=== PATIENT | male | born 1955 | race Caucasian/White ===

== ENCOUNTER → 2017-08-17 | Outpatient (REF) ==
[~2017-08-17] MED LIST: MOBIC15 MG PO; NORCO 325 MG-7.1 TAB PO; PRINIVIL40 MG PO; ZOCOR 20MG20 MG PO
== END ==
LOC: ZLAB.WCH 08:39
DX: Z12.5 Encounter for screening for malignant neoplasm of prostate (principal)
CPT/HCPCS: G0103

== ENCOUNTER → 2017-10-08 | Outpatient (CLI) | payer BC | LOC: COL.RAD 12:20 | DX: Z01.818 Encounter for other preprocedural examination (principal); M17.12 Unilateral primary osteoarthritis, left knee ==

== ENCOUNTER → 2017-10-25 | Outpatient (REF) | LOC: ZLAB.WCH 18:45 | DX: Z01.89 Encounter for other specified special examinations (principal) ==

== ENCOUNTER 2018-07-08 10:42 | Outpatient (CLI) | payer BC | END 2018-07-08 14:00 | disposition home or self-care (01) | LOC: EUO 10:42 | DX: Z45.2 Encounter for adjustment and management of vascular access device (principal) | CPT/HCPCS: C1751 ==

== ENCOUNTER → 2018-07-09 | Outpatient (REF) | LOC: ZLAB.WCH 12:14 | DX: Z01.89 Encounter for other specified special examinations (principal) ==

== ENCOUNTER → 2018-07-11 | Outpatient (REF) | LOC: ZLAB.WCH 16:36 | DX: Z01.89 Encounter for other specified special examinations (principal) ==

== ENCOUNTER → 2018-07-11 | Outpatient (REF) | LOC: ZLAB.WCH 16:28 | DX: Z01.89 Encounter for other specified special examinations (principal) ==

== ENCOUNTER → 2018-07-15 | Outpatient (REF) | LOC: ZLAB.WCH 09:41 | DX: Z01.89 Encounter for other specified special examinations (principal) ==

== ENCOUNTER → 2018-07-21 | Outpatient (REF) | LOC: ZLAB.WCH 08:56 | DX: Z01.89 Encounter for other specified special examinations (principal) ==

== ENCOUNTER → 2018-07-27 | Outpatient (REF) | LOC: ZLAB.WCH 08:32 | DX: Z01.89 Encounter for other specified special examinations (principal) ==

== ENCOUNTER → 2018-08-03 | Outpatient (REF) | LOC: ZLAB.WCH 08:50 | DX: Z01.89 Encounter for other specified special examinations (principal) ==

== ENCOUNTER → 2018-08-05 | Outpatient (REF) | LOC: ZLAB.WCH 08:29 | DX: Z01.89 Encounter for other specified special examinations (principal) ==

== ENCOUNTER → 2018-08-07 | Outpatient (REF) | LOC: ZLAB.WCH 10:07 | DX: Z01.89 Encounter for other specified special examinations (principal) ==

== ENCOUNTER → 2018-08-12 | Outpatient (REF) | LOC: ZLAB.WCH 09:04 | DX: Z01.89 Encounter for other specified special examinations (principal) ==

== ENCOUNTER 2018-08-24 11:01 | Outpatient (CLI) | payer BC ==
[~2018-08-24] VITALS: Ht 180.3 cm; Wt 122.4 kg
[2018-08-24] MEDS ORDERED: ASPIRIN 81M81 MG/TA2 PO (11:35)
[2018-08-24] MEDS ORDERED: NATURAL IRON65 MG PO (11:35)
[2018-08-24] MEDS ORDERED: FOLIC ACID0.4 MG PO (11:36)
[2018-08-24] MEDS ORDERED: OMEGA-3 1000 MG1 CAP PO (11:36)
[2018-08-24] MEDS ORDERED: VITAMIN C500 MG PO (11:36)
[2018-08-24 11:40] VITALS: BP 143/67; PULSE 67; TEMP 98.1
== END 2018-08-24 11:57 | disposition home or self-care (01) ==
LOC: EUO 11:01
DX: Z45.2 Encounter for adjustment and management of vascular access device (principal); Z96.651 Presence of right artificial knee joint; Z98.890 Other specified postprocedural states

== ENCOUNTER 2018-11-18 10:28 | Inpatient (IN) | payer BC ==
[~2018-11-18] VITALS: Ht 175.3 cm; Wt 120.1 kg
[~2018-11-18 10:28] MED LIST changes: +ASPIRIN 81M81 MG/TA2 PO; +FOLIC ACID0.4 MG PO; +NATURAL IRON65 MG PO; +OMEGA-3 1000 MG1 CAP PO; +VITAMIN C500 MG PO
[2018-12-13] VITALS (9 sets, daily range): BP systolic 121–158; BP diastolic 41–72; PULSE 42–75; TEMP 97.9–98.8
[2018-12-13 10:27] LABS: INR 1.1 (0.8-3.0); PROTHROMBIN TIME 12.6 SECONDS (9.7-12.8)
[2018-12-13 10:31] LABS: BASO % 0.5 % (0.0-2.0); EOS # 0.2 (0.0-0.7); EOS % 2.9 % (0-4.0); GRAN # 4.8 (1.4-6.5); GRAN % 72.8 % (42.2-75.2); HEMATOCRIT 38.5 % (42.0-52.0); HEMOGLOBIN 12.7 g/dl (13.5-18.0); LYMPH # 0.8 (1.2-3.4); LYMPH % 12.4 % (20.0-51.0); MEAN CELL VOLUME 85 fl (80.0-100.0); MEAN CORPUSCULAR HEMOGLOBIN 28 pg (27.0-31.0); MEAN CORPUSCULAR HGB CONC 33 g/dl (33.0-37.0); MEAN PLATELET VOLUME 9.2 fl (7.4-10.4); MONO # 0.7 (0.1-0.6); MONO % 10.9 % (1.7-9.3); PLATELET COUNT 225 K/mm3 (130-400); RED BLOOD COUNT 4.51 M/mm3 (4.20-5.60); REDCELL DISTRIBUTION WIDTH-CV 14.6 % (11.5-14.5)
--- NOTE | 2018-12-13 15:35 | NUR ---
PATIENT BACK IN ROOM 330 POST OP. ORIENTED BUT DROWSY. VSS. DENIES PAIN. PATIENT IS ABLE TO MOVE BLE SLIGHTLY. RTK DRESSING IS CD&I WITH ACEWRAP INPLACE. IROM BRACE TO RLE. TEDS TO LLE. SCD'S TO BLE. POSITIVE PEDAL PULSES TO BLE. FRAGA TO DEPENDENT DRAINAGE WITH SMALL AMOUNTS OF CLEAR YELLOW URINE NOTED. IV FLUIDS INFUSING VIA PUMP. NO C/O N/V. LIQUIDS AT BEDSIDE. HEAD TO TOE ASSESSMENT COMPLETE. ORIENTED TO ROOM. NO FAMILY AT BEDSIDE. CALL LIGHT IN REACH.
--- NOTE | 2018-12-13 16:15 | NUR ---
CALLED AND LEFT MESSAGE FOR ID CONSULT.
--- NOTE | 2018-12-13 20:00 | NUR ---
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 ASSESSMENT COMPLETE SEE FLOW SHEET. VS STABLE. IROM BRACE, JOHANNY BANDAGE WITH BULKY DRESSING-CLEAN DRY AND INTACT. DENIES NEED FOR PAIN MEDICATIONS. TEACHING DONE ON REQUESTING PAIN MEDICATIONS WHEN NEEDED. UP TO BATHROOM AND AMBULATED IN THE [place] 100 FEET WITHOUT DIFFICULTY. ICE APPLIED. CALL LIGHT WITHIN REACH. BED IN LOW POSITION. WILL CONTINUE TO MONITOR.
[2018-12-14 00:47] VITALS: BP 153/57; PULSE 90; TEMP 98.8
[2018-12-14 05:07] VITALS: BP 130/62; PULSE 77; TEMP 97.9
--- NOTE | 2018-12-14 05:42 | NUR ---
HAS RESTED WELL THROUGH THE NIGHT. VS STABLE. IROM BRACE ON AND ELEVATED ON SLIGHTLY ON PILLOW. DRESSING DRY AND INTACT. C/O PAIN RATED 5/10 IN RIGHT LOWER EXTREMITY. MEDICATED PER DR PENA 2 TABS. WILL MONITOR EFFECTIVENESS. CRYOCUFF FILLED WITH ICE/WATER AND ON. DENIES ANY OTHER QUESTIONS OR CONCERNS. CALL LIGHT WITHIN REACH. BED IN LOW POSITION-WHEELS LOCKED. WILL MONITOR.
[2018-12-14] MEDS ORDERED: ASPI325T6 PO (06:47)
[2018-12-14] MEDS ORDERED: NORCO 325 MG-7.1 TAB PO (06:47)
[2018-12-14] MEDS ORDERED: CELEBREX 200MG200 MG PO (06:47)
[2018-12-14] MEDS ORDERED: ULTRAM 50MG TAB50 MG PO (06:48)
--- NOTE | 2018-12-14 07:05 | NUR ---
Report from Lana NEGRO.
[2018-12-14 07:19] LABS: HEMATOCRIT 28.8 % (42.0-52.0)
[2018-12-14 07:20] LABS: HEMOGLOBIN 9.5 g/dl (13.5-18.0)
[2018-12-14 09:18] VITALS: BP 106/67; PULSE 71; TEMP 97.6
--- NOTE | 2018-12-14 09:20 | NUR ---
PT RESTING IN BED. DR FERNANDEZ ROUNDED AND CHANGED DRESSING. IV SERVICES PLACED PICC LINE. ANCEF COMPLETE ORDERED.
[2018-12-14 11:00] VITALS: BP 110/43; PULSE 81; TEMP 98.3
--- NOTE | 2018-12-14 11:34 | NUR ---
PT RESTING IN RECLINER SM AMT OF PROXIMAL DRAINAGE NOTED. FRAGA CATHETER DISCONTINUED PER ORDRS BY PLODDING OPERATOR STUDENTS.
--- NOTE | 2018-12-14 12:24 | NUR ---
reinforced dressing to right knee pt had some oozing through swati wrap. Pt tolerated well. asisted to standing with brace
--- NOTE | 2018-12-14 12:27 | NUR ---
Initial visit; Patient thanked Scraper Operator for looking in on him and ofering God's blessings.
[2018-12-14 16:22] VITALS: BP 126/45; PULSE 80; TEMP 99
--- NOTE | 2018-12-14 16:42 | NUR ---
ERICA tamayo met with patient to discuss discharge plan. The patient lives with his (Jyoti) in [place]. The patient's PCP is Dr. Miguelangel Peters and he receives his medications from [facility]. The patient did not have a DPOA-HC completed but was interested in completing one while here. ERICA tamayo presented and explained the DPOA-HC form. Patient designated his (Jyoti) and daughter (Esme). ERICA tamayo and SW (Ann) witnessed signature. ERICA Tamayo placed copy in his chart and provided patient with original +3 copies. No identified needs at this time. SW to continue to follow.
[2018-12-14 17:57] LABS: ALBUMIN 2.7 gm/dL (3.5-5.0); BILIRUBIN,TOTAL 0.2 mg/dL (0.0-1.0); CALCIUM 8.1 mg/dL (8.4-10.2); CREATININE, serum 1.07 mg/dL (0.66-1.25); TOTAL PROTEIN 5.6 gm/dL (6.4-8.2)
--- NOTE | 2018-12-14 18:44 | NUR ---
REPORT TO MORALES NEGRO.
[2018-12-14 20:00] VITALS: BP 125/52; PULSE 77; TEMP 98.6
--- NOTE | 2018-12-14 22:00 | NUR ---
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 HAS SLEPT WELL EARLY THIS SHIFT. ASSESSMENT COMPLETE. VS STABLE. AMBULATED A LAP AROUND ALL OF SURGICAL AND JOINT FLOOR WITHOUT DIFFICULTY USING CRUTCHES. IROM BRACE ON. DRESSING- OJHANNY BANDAGE AND BULKY WHITE DRESSINGS FROM REINFORCEMENT DUE TO DRAINAGE. NO NEW DRAINAGE NOTED. DENIES ANY QUESTIONS OR CONCERNS AT THIS TIME. CALL LIGHT WITHIN REACH. BED IN LOW POSITION AND LOCKED. INSTRUCTED TO CALL FOR QUESTIONS OR CONCERNS. VERBALIZES UNDERSTANDING. WILL MONITOR.
[2018-12-15 04:35] VITALS: BP 103/43; PULSE 80; TEMP 97.6
--- NOTE | 2018-12-15 04:54 | NUR ---
HAS RESTED WELL OFF AND ON THROUGH THE NIGHT. DENIES NEED FOR PAIN MEDICATIONS. NO CHANGE IN DRAINAGE FOR THIS SHIFT. JOHANNY BANDAGES WITH BULKY DRESSING UNDERNEATH. BRACE IN PLACE WITH FRESH ICE PACK APPLIED. VS HAVE BEEN STABLE. DENIES ANY QUESTIONS OR CONCERNS AT THIS TIME. ENCOURAGED TO CALL FOR NEEDS AND CALL LIGHT WITHIN REACH. BED IN LOW POSITION, WHEELS LOCKED. WILL CONTINUE TO MONITOR.
[2018-12-15 06:42] LABS: HEMATOCRIT 26.5 % (42.0-52.0); HEMOGLOBIN 8.5 g/dl (13.5-18.0)
[2018-12-15 08:12] VITALS: BP 128/62; PULSE 66; TEMP 97.4
[2018-12-15 12:08] VITALS: BP 112/40; PULSE 63; TEMP 98.5
[2018-12-15 17:15] VITALS: BP 132/39; PULSE 76; TEMP 98.5
[2018-12-15 20:45] VITALS: BP 121/51; PULSE 77; TEMP 98.6
--- NOTE | 2018-12-15 21:00 | NUR ---
PT RT KNEE BRACE REMAINS ON AND AT 0 WITH KNEE EXTENEDED STRAIGHT. PT TOLERATING WELL.
--- NOTE | 2018-12-15 23:00 | NUR ---
PT STATED THAT HE HAS BEEN ABULATING TO BATHROOM AD KRISTEN
[2018-12-15 23:20] VITALS: BP 129/45; PULSE 72; TEMP 98.3
[2018-12-16 04:24] VITALS: BP 108/48; PULSE 72; TEMP 97.9
--- NOTE | 2018-12-16 06:11 | NUR ---
PT HAD UNEVENTFUL NOC. HAD PAIN PILL AT BEDTIME FOR KNEE PAIN AND TO HELP RELAX HIM. NO OTHER CNSERNS OR COMPLAINTS THIS NOC. STATED HE SLEPT WELL FROM 1900 TO MIDNIGHT THEN WAS AWAKE FREQUENTLY AFTER THAT. DRESSING REMAINS CLEAN DRY AND INTACT.
--- NOTE | 2018-12-16 06:50 | NUR ---
appears to be sleeping, bedside shift report received from SRUTHI Pitts
--- NOTE | 2018-12-16 07:01 | NUR ---
PT ASLEEP AT THIS TIME. NOTED AUDIBLE SNORING. LEEANN TAKING OVER ON CARES.
--- NOTE | 2018-12-16 07:30 | NUR ---
Pt resting in bed with leg elevated brace on right leg with swati wrap that remains clean,dry and intact. PICC line in place in right upper arm with red and purple caps. No complaints of shortness of breath. Pt states "I want to stay on top of pain and requesting pain medicine at this time." Talked with primary RN Fabienne she agrees with this.
[2018-12-16 08:00] VITALS: BP 147/57; PULSE 72; TEMP 97.7
--- NOTE | 2018-12-16 08:00 | NUR ---
awake now and student nurse in to assist with care of patient
--- NOTE | 2018-12-16 09:00 | NUR ---
resting in bed after having had breakfast, full assessment completed, have reviewed assessment completed by student and in agreement with that assessment
--- NOTE | 2018-12-16 11:22 | NUR ---
ERICA faxed antibiotic prescription to [facility] and spoke with nurse. Time scheduled for 4pm tomorrow start. Patient agreeable. Patient will dc home today with outpatient antibiotics.
--- NOTE | 2018-12-16 12:00 | NUR ---
discharge instructions given to patient and his , verbalizes understandinag
--- NOTE | 2018-12-16 12:15 | NUR ---
discharged per WC
== END 2018-12-16 12:15 | disposition home or self-care (01) | DRG 468 ==
LOC: JCC 12-13 09:51
PROVIDERS: Internal Medicine Infectious Disease; Physician Assistant; ADMIT Orthopaedic Surgery
PROC: 0SRC0EZ Replacement of Right Knee Joint with Articulating Spacer, Open Approach (ICD-10-PCS; 2018-12-13)
PROC: 0SPC0JZ Removal of Synthetic Substitute from Right Knee Joint, Open Approach (ICD-10-PCS; principal; 2018-12-13 14:15)
DX: T84.53XA Infection and inflammatory reaction due to internal right knee prosthesis, initial encounter (principal); I10 Essential (primary) hypertension; Z96.651 Presence of right artificial knee joint; B95.61 Methicillin susceptible Staphylococcus aureus infection as the cause of diseases classified elsewhere; E78.5 Hyperlipidemia, unspecified
CPT/HCPCS: A4314; A9284; C1713; C1751; C1776; J0690; J0878; J1885; J2250; J2704; J3010; J3370; J7030; J7120; J7121

== ENCOUNTER → 2018-12-06 | Outpatient (CLI) | payer BC | LOC: COL.LAB 12:11 | DX: Z96.651 Presence of right artificial knee joint (principal) ==

== ENCOUNTER → 2018-12-26 | Outpatient (REF) ==
[~2018-12-26] MED LIST changes: +ASPI325T6 PO; +CELEBREX 200MG200 MG PO; +ULTRAM 50MG TAB50 MG PO
== END ==
LOC: ZLAB.WCH 19:37
DX: Z01.89 Encounter for other specified special examinations (principal)

== ENCOUNTER → 2019-01-10 | Outpatient (REF) | LOC: ZLAB.WCH 10:08 | DX: Z01.89 Encounter for other specified special examinations (principal) ==

== ENCOUNTER → 2019-01-17 | Outpatient (REF) | LOC: ZLAB.WCH 09:57 | DX: Z01.89 Encounter for other specified special examinations (principal) ==

== ENCOUNTER → 2019-01-24 | Outpatient (REF) | LOC: ZLAB.WCH 09:24 | DX: Z01.89 Encounter for other specified special examinations (principal) ==

== ENCOUNTER → 2019-03-02 | Outpatient (CLI) | payer BC ==
[2019-03-02 09:08] LABS: BASO # 0.1 (0.0-0.2); BASO % 0.7 % (0.0-2.0); EOS # 0.3 (0.0-0.7); EOS % 3.8 % (0-4.0); GRAN % 67.2 % (42.2-75.2); HEMATOCRIT 38.6 % (42.0-52.0); HEMOGLOBIN 12.4 g/dl (13.5-18.0); LYMPH # 1.4 (1.2-3.4); LYMPH % 18.2 % (20.0-51.0); MEAN CELL VOLUME 84 fl (80.0-100.0); MEAN CORPUSCULAR HEMOGLOBIN 27 pg (27.0-31.0); MEAN CORPUSCULAR HGB CONC 32 g/dl (33.0-37.0); MONO # 0.7 (0.1-0.6); MONO % 9.8 % (1.7-9.3); PLATELET COUNT 328 K/mm3 (130-400)
[2019-03-02 09:25] LABS: ALANINE AMINOTRANSFERASE < 6 U/L (21-72); ALKALINE PHOSPHATASE 131 U/L (50-136); ANION GAP 12 mmol/L (7-16); AST,SGOT 20 U/L (15-37); BILIRUBIN,TOTAL 0.3 mg/dL (0.0-1.0); BLOOD UREA NITROGEN 22 mg/dL (9-20); C-REACTIVE PROTEIN 2.8 mg/dL (0.0-0.9); CALCIUM 9.3 mg/dL (8.4-10.2); CARBON DIOXIDE 26 mmol/L (22-30); CHLORIDE 104 mmol/L (98-107); CREATINE KINASE 63 U/L (55-170); CREATININE, serum 0.89 (0.66-1.25); GLUCOSE 142 mg/dL (74-106); POTASSIUM 4.6 mmol/L (3.4-5.0); SODIUM 141 mmol/L (137-145); TOTAL PROTEIN 8.2 gm/dL (6.4-8.2)
[2019-03-02 09:28] LABS: ERYTHROCYTE SEDIMENTATION RATE 40 mm/hr (0-30)
== END ==
LOC: COL.LAB 08:27
PROVIDERS: Internal Medicine Infectious Disease
DX: M00.9 Pyogenic arthritis, unspecified (principal); A49.01 Methicillin susceptible Staphylococcus aureus infection, unspecified site; R10.9 Unspecified abdominal pain

== ENCOUNTER → 2019-03-09 | Outpatient (CLI) | payer BC ==
[2019-03-09 12:59] LABS: BASO # 0.1 (0.0-0.2); BASO % 0.6 % (0.0-2.0); EOS # 0.3 (0.0-0.7); EOS % 3.5 % (0-4.0); GRAN # 6.4 (1.4-6.5); GRAN % 73.4 % (42.2-75.2); HEMATOCRIT 37.6 % (42.0-52.0); HEMOGLOBIN 12.1 g/dl (13.5-18.0); LYMPH # 1.1 (1.2-3.4); LYMPH % 13.2 % (20.0-51.0); MEAN CELL VOLUME 83 fl (80.0-100.0); MEAN CORPUSCULAR HEMOGLOBIN 27 pg (27.0-31.0); MEAN CORPUSCULAR HGB CONC 32 g/dl (33.0-37.0); MEAN PLATELET VOLUME 9.2 fl (7.4-10.4); MONO # 0.8 (0.1-0.6); MONO % 9.1 % (1.7-9.3); PLATELET COUNT 300 K/mm3 (130-400); RED BLOOD COUNT 4.53 M/mm3 (4.20-5.60)
[2019-03-09 13:13] LABS: ALBUMIN 4.1 gm/dL (3.5-5.0); BILIRUBIN,TOTAL 0.4 mg/dL (0.0-1.0); C-REACTIVE PROTEIN 5.6 mg/dL (0.0-0.9); CALCIUM 9.3 mg/dL (8.4-10.2); CREATININE, serum 0.94 (0.66-1.25); POTASSIUM 4.3 mmol/L (3.4-5.0); TOTAL PROTEIN 8.4 gm/dL (6.4-8.2)
[2019-03-09 13:25] LABS: ERYTHROCYTE SEDIMENTATION RATE 41 mm/hr (0-30)
== END ==
LOC: COL.LAB 09:11
PROVIDERS: Internal Medicine Infectious Disease
DX: M00.9 Pyogenic arthritis, unspecified (principal); A49.01 Methicillin susceptible Staphylococcus aureus infection, unspecified site

== ENCOUNTER 2019-03-10 09:20 | Inpatient (IN) | payer BC ==
[~2019-03-10] VITALS: Ht 175.3 cm; Wt 115.0 kg
[2019-03-29] VITALS (11 sets, daily range): BP systolic 92–136; BP diastolic 35–72; PULSE 55–74; TEMP 98–98.9
[2019-03-29] MEDS ORDERED: ASPIRIN E.C. 8181 MG PO (08:19)
--- NOTE | 2019-03-29 08:48 | NUR ---
arrived on unit at 075, prepped for surgery without incident, explanation given to patient and his for going to and returning from surgery, verbalizes understanding, denies needs
--- NOTE | 2019-03-29 14:30 | NUR ---
O2 sats on room air while sleeping, drop to 89%, cardiopulmonary notified and will place on O2, has sensation with some tingling to feet and is able to move toes, constavac remains with only approx 100ml bloody drainage in reservoir
--- NOTE | 2019-03-29 15:00 | NUR ---
awake and sitting up in bed eating snack crackers, instructed him he could call and order something to eat but will wait at this time, full assessment compelted, see interventions for further info, has approx 200ml blood in reservoir, denies needs
--- NOTE | 2019-03-29 15:30 | NUR ---
awake now and looking at TV, provided dexter tobar per his request, instructed on ordering regular food when he is ready and verbalizes understanding
--- NOTE | 2019-03-29 16:26 | NUR ---
SW met with the patient to discuss a discharge plan. The pt lives in [place] with his , Jyoti. The pt has a walker available but does not need it and reports independence with ADLs. The pt's PCP is Dr. Peters and pt receives his medications from [facility] with no difficulties. The pt has advanced directives in the EMR and they designate his Jyoti and daughter Esme. The pt plans to return home upon discharge. There are no additional needs at this time.
--- NOTE | 2019-03-29 16:30 | NUR ---
constac continuew with only approx 200ml bloody drainage in reservoir
--- NOTE | 2019-03-29 17:30 | NUR ---
visiting with family, is reviewing menu and will order supper soon
--- NOTE | 2019-03-29 18:59 | NUR ---
bedside shift report given to SRUTHI Cordova
--- NOTE | 2019-03-29 19:19 | NUR ---
Report received from SRUTHI Loving.
[2019-03-30 01:04] VITALS: BP 127/48; PULSE 73; TEMP 98.7
--- NOTE | 2019-03-30 03:32 | NUR ---
Patient has rested well so far tonight. Requested pain medication x1 this shift. Ambulated to the door to his bedroom and back. Tolerated this well. Patient has a constavac to right knee. Drain noted to have over 400ml in it about 2200. Bhavana Hughes updated and told this nurse the drain was placed around 1300 so the blood in the constavac could not be used d/t it needing to be used within 4 hours. The blood that was in the constavac was disposed of and a new time started at 0030. 150ml noted to be in the vac at this time. Will continue to monitor drain and patient.
[2019-03-30 04:36] VITALS: BP 130/58; PULSE 83; TEMP 98.6
[2019-03-30 07:25] LABS: HEMATOCRIT 27.2 % (42.0-52.0); HEMOGLOBIN 8.7 g/dl (13.5-18.0)
[2019-03-30 08:00] VITALS: BP 122/59; PULSE 71; TEMP 97.7
--- NOTE | 2019-03-30 08:00 | NUR ---
PATIENT IS A&O. VSS. DENIES PAIN IN RLE BUT REQUESTS SOMETHING FOR PAIN BEFORE AM THERAPY. GAVE PRN NORCO. RTK DRESSING IS CD&I WITH ACEWRAP AND CONSTOVAC DRAIN TO DD. NOTED APPROX 275CC OF BLOODY DRAINAGE. FRAGA TO DEPENDENT DRAINAGE WITH MOD AMOUNTS OF CLEAR YELLOW URINE NOTED. IV TO INT. HEAD TO TOE ASSESSMENT WNL. NO C/O N/V. BREAKFAST TRAY AT BEDSIDE. AM MEDS GIVEN.
[2019-03-30 12:06] VITALS: BP 103/32; PULSE 79; TEMP 98.8
--- NOTE | 2019-03-30 15:20 | NUR ---
DC'D FRAGA PER ORDERS. FRAGA CATH TIP INTACT AND PATIENT TOLERATED WELL. NOTED 425CC OF CLEAR YELLOW URINE. NOTED 350CC OF BLOODY DRAINAGE IN CONSTOVAC DRAIN. PATIENT REPORTS LITTLE PAIN IN RLE. PATIENT AMBULATED TO BATHROOM AND BACK TO BED. ELEVATED RLE WITH PILLOW. NO OTHER NEEDS. CALL LIGHT IN REACH.
[2019-03-30 16:00] VITALS: BP 120/54; PULSE 79; TEMP 98.6
[2019-03-30 19:22] VITALS: BP 110/49; PULSE 80; TEMP 98.8
[2019-03-31 00:25] VITALS: BP 123/56; PULSE 70; TEMP 97.8
--- NOTE | 2019-03-31 02:39 | NUR ---
Patient has rested well throughout the night. Drain clamped to right knee. Patient ambulates to restroom with no difficulty. Will continue to monitor.
[2019-03-31 04:32] VITALS: BP 134/62; PULSE 69; TEMP 97.6
--- NOTE | 2019-03-31 06:35 | NUR ---
bedside shift report received from SRUTHI Cordova
[2019-03-31 06:43] LABS: HEMATOCRIT 28.4 % (42.0-52.0); HEMOGLOBIN 8.8 g/dl (13.5-18.0)
--- NOTE | 2019-03-31 07:30 | NUR ---
appears to be sleeping, resp quiet and easy
--- NOTE | 2019-03-31 07:54 | NUR ---
awake now and watching TV, full assessment completed, see interventions for further info, denies needs
[2019-03-31 08:38] VITALS: BP 133/54; PULSE 75; TEMP 97.7
--- NOTE | 2019-03-31 10:30 | NUR ---
discharge instructions given to patient, verbalizes understanding, will call when brother is here for discharge
--- NOTE | 2019-03-31 11:00 | NUR ---
discharged per WC
== END 2019-03-31 11:00 | disposition home or self-care (01) | DRG 468 ==
LOC: JCC 03-29 07:43 → SURG 03-29 10:00 → JCC 03-29 11:30
PROVIDERS: Physician Assistant; ADMIT Orthopaedic Surgery
PROC: 0SRC0J9 Replacement of Right Knee Joint with Synthetic Substitute, Cemented, Open Approach (ICD-10-PCS; 2019-03-29)
PROC: 0SPC0JZ Removal of Synthetic Substitute from Right Knee Joint, Open Approach (ICD-10-PCS; 2019-03-29)
PROC: 0SPC08Z Removal of Spacer from Right Knee Joint, Open Approach (ICD-10-PCS; principal; 2019-03-29 10:00)
DX: Z47.33 Aftercare following explantation of knee joint prosthesis (principal); M25.561 Pain in right knee; I10 Essential (primary) hypertension; Z96.652 Presence of left artificial knee joint
CPT/HCPCS: A4314; A9284; C1776; J0690; J1885; J2250; J2704; J3010; J3370; J7050; J7120

== ENCOUNTER → 2019-03-22 | Outpatient (CLI) | payer BC | LOC: COL.LAB 10:36 | DX: Z01.812 Encounter for preprocedural laboratory examination (principal) ==

== ENCOUNTER → 2019-03-22 | Outpatient (CLI) | payer BC ==
[2019-03-22 11:45] LABS: BASO % 0.4 % (0.0-2.0); EOS # 0.3 (0.0-0.7); GRAN # 7.1 (1.4-6.5); GRAN % 74.5 % (42.2-75.2); HEMOGLOBIN 11.5 g/dl (13.5-18.0); LYMPH # 1.1 (1.2-3.4); MEAN CELL VOLUME 83 fl (80.0-100.0); MEAN CORPUSCULAR HEMOGLOBIN 27 pg (27.0-31.0); MEAN CORPUSCULAR HGB CONC 32 g/dl (33.0-37.0); MEAN PLATELET VOLUME 8.8 fl (7.4-10.4); MONO # 0.9 (0.1-0.6); MONO % 9.7 % (1.7-9.3); PLATELET COUNT 259 K/mm3 (130-400); RED BLOOD COUNT 4.32 M/mm3 (4.20-5.60); REDCELL DISTRIBUTION WIDTH-CV 14.4 % (11.5-14.5)
[2019-03-22 11:48] LABS: HEMATOCRIT 35.8 % (42.0-52.0)
[2019-03-22 11:58] LABS: BILIRUBIN,TOTAL 0.5 mg/dL (0.0-1.0); C-REACTIVE PROTEIN 6.1 mg/dL (0.0-0.9); CALCIUM 9.1 mg/dL (8.4-10.2); CREATININE, serum 0.82 (0.66-1.25); POTASSIUM 4.3 mmol/L (3.4-5.0); TOTAL PROTEIN 8.3 gm/dL (6.4-8.2)
[2019-03-22 12:28] LABS: ERYTHROCYTE SEDIMENTATION RATE 83 mm/hr (0-30)
== END ==
LOC: COL.LAB 10:32
PROVIDERS: Nurse Practitioner
DX: M00.00 Staphylococcal arthritis, unspecified joint (principal); B95.61 Methicillin susceptible Staphylococcus aureus infection as the cause of diseases classified elsewhere

== ENCOUNTER → 2019-04-06 | Outpatient (CLI) | payer BC ==
[~2019-04-06] MED LIST changes: +ASPIRIN E.C. 8181 MG PO
[2019-04-06 10:16] LABS: HEMOGLOBIN 10.3 g/dl (13.5-18.0); MEAN CELL VOLUME 83 fl (80.0-100.0); MEAN CORPUSCULAR HEMOGLOBIN 26 pg (27.0-31.0); MEAN CORPUSCULAR HGB CONC 31 g/dl (33.0-37.0); MEAN PLATELET VOLUME 8.2 fl (7.4-10.4); PLATELET COUNT 344 K/mm3 (130-400); REDCELL DISTRIBUTION WIDTH-CV 14.8 % (11.5-14.5)
[2019-04-06 10:17] LABS: HEMATOCRIT 33.3 % (42.0-52.0)
[2019-04-06 10:59] LABS: EOSINOPHIL 3 % (0-4); LYMPHOCYTE 15 % (20.0-51.0); NEUTROPHILS 76 % (42.0-75.2); PLATELET ESTIMATE NORMAL (NORMAL)
[2019-04-06 11:03] LABS: ALBUMIN 3.9 gm/dL (3.5-5.0); BILIRUBIN,TOTAL 0.4 mg/dL (0.0-1.0); C-REACTIVE PROTEIN 3.1 mg/dL (0.0-0.9); CALCIUM 9.3 mg/dL (8.4-10.2); CREATININE, serum 0.95 (0.66-1.25); POTASSIUM 4.7 mmol/L (3.4-5.0); TOTAL PROTEIN 8.2 gm/dL (6.4-8.2)
[2019-04-06 14:01] LABS: ERYTHROCYTE SEDIMENTATION RATE 78 mm/hr (0-30)
== END ==
LOC: COL.LAB 09:48
PROVIDERS: Nurse Practitioner
DX: T84.50XA Infection and inflammatory reaction due to unspecified internal joint prosthesis, initial encounter (principal); A49.01 Methicillin susceptible Staphylococcus aureus infection, unspecified site

== ENCOUNTER → 2020-03-26 | Outpatient (CLI) | payer BC ==
[2020-03-26 12:56] LABS: BASO % 0.5 % (0.0-2.0); EOS # 0.3 (0.0-0.7); EOS % 3.3 % (0-4.0); GRAN # 5.5 (1.4-6.5); GRAN % 69.3 % (42.2-75.2); HEMATOCRIT 37.7 % (42.0-52.0); HEMOGLOBIN 12.8 g/dl (13.5-18.0); LYMPH # 1.3 (1.2-3.4); LYMPH % 16.5 % (20.0-51.0); MEAN CELL VOLUME 89 fl (80.0-100.0); MEAN CORPUSCULAR HEMOGLOBIN 30 pg (27.0-31.0); MEAN CORPUSCULAR HGB CONC 34 g/dl (33.0-37.0); MEAN PLATELET VOLUME 8.8 fl (7.4-10.4); MONO # 0.8 (0.1-0.6); PLATELET COUNT 261 K/mm3 (130-400); RED BLOOD COUNT 4.26 M/mm3 (4.20-5.60); REDCELL DISTRIBUTION WIDTH-CV 12.6 % (11.5-14.5)
[2020-03-26 13:09] LABS: C-REACTIVE PROTEIN 4.8 mg/dL (0.0-0.9); CALCIUM 9.1 mg/dL (8.4-10.2); CREATININE, serum 1.1 (0.66-1.25); POTASSIUM 4.5 mmol/L (3.4-5.0)
[2020-03-26 13:30] LABS: ERYTHROCYTE SEDIMENTATION RATE 35 mm/hr (0-30)
== END ==
LOC: COL.LAB 12:20
PROVIDERS: Orthopaedic Surgery
DX: Z98.890 Other specified postprocedural states (principal)

== ENCOUNTER → 2020-05-14 | Outpatient (CLI) | payer BC | LOC: COL.LAB 07:39 | DX: M25.569 Pain in unspecified knee (principal); Z96.659 Presence of unspecified artificial knee joint ==

== ENCOUNTER 2024-05-05 09:35 | Day surgery (SDC) | payer MEDICARE, OTHER ==
[~2024-05-05] VITALS: Ht 175.3 cm; Wt 124.9 kg
[~2024-05-05 09:35] MED LIST changes: +BACTRIM DS 8001 TAB PO; +LR 1,000 ML IV SCH; +Lidocaine PF 2% (20 MG/ML) 5 ML VIAL ONE; +PRIL40 PO; +fentaNYL 50 MCG/ML 5 ML VIAL ONE
[2024-05-05 10:39] VITALS: BP 144/82; PULSE 58; TEMP 97.7
[2024-05-05] MEDS ORDERED: Lidocaine PF 2% (20 MG/ML) 10 ML POLY AMP IJ ONE (11:40)
[2024-05-05] MEDS ORDERED: Ondansetron 4 MG/2 ML VIAL IV PRN ×2 (12:00→12:15)
[2024-05-05] MEDS ORDERED: HYDROmorphone 1 MG/1 ML SYRINGE [PACU/SDC ONLY] IV PRN (12:00)
[2024-05-05] MEDS ORDERED: hydrALAZINE 20 MG/ML 1 ML VIAL IV PRN (12:00)
[2024-05-05] MEDS ORDERED: fentaNYL 50 MCG/ML 1 ML SYRINGE/VIAL [PACU/SDC ONLY] IV PRN (12:00)
[2024-05-05] MEDS ORDERED: NORCO 325 MG-51 TAB PO (12:08)
[2024-05-05] MEDS ORDERED: Ibuprofen 600 MG TAB PO PRN (12:15)
[2024-05-05] MEDS ORDERED: Acetaminophen 325 MG TAB PO PRN (12:15)
[2024-05-05 12:40] VITALS: BP 143/75; PULSE 51; TEMP 97
--- NOTE | 2024-05-05 12:40 | NUR ---
PATIENT RETURNED TO BAY 3 VIA CART, ALERT AND ORIENTED X3. DENIES PAIN, NAUSEA AND SHORTNESS OF BREATH. BREATHING REGULAR AND UNLABORED ON ROOM AIR. SKIN WARM AND DRY. NURSE HANDOFF COMPLETED IN ROOM WITH INSPECTION OF SURGICAL SITE. GAUZE PRESENT WITH MESH UNDERWEAR. DRESSING HAS SCANT OLD BLOODY DRAINAGE. DRESSING INTACT. SURROUNDING SKIN INTACT. PATIENT HAS NO COMPLAINTS. PATIENT HAD GRAPE JUICE AND VANILLA PUDDING. BOTH FOOD AND DRINK TOLERATED WELL. CALL LIGHT IN REACH. SPOUSE, NATASHA, PRESENT IN ROOM.
[2024-05-05 12:57] VITALS: BP 160/73; PULSE 47
[2024-05-05 13:00] VITALS: BP 157/70; PULSE 48
[2024-05-05 13:15] VITALS: BP 150/67; PULSE 47
[2024-05-05 13:30] VITALS: BP 141/73; PULSE 51
--- NOTE | 2024-05-05 13:46 | NUR ---
1330: DISCHARGE TEACHING COMPLETED WITH PRINTED EDUCATION AND INSTRUCTIONS SENT HOME WITH PATIENT AND FAMILY. PATIENT VERBALIZED UNDERSTANDING OF TEACHING. 1334: PATIENT DENIES PAIN. TOLERATING FOOD AND DRINK. SURGICAL DRESSING DRY AND INTACT. IV REMOVED. GAUZE AND COBAN PLACED OVER SITE. 1338: PATIENT AMBULATED TO THE RESTROOM WITH STEADY GAIT AND VOIDED WITHOUT DIFFICULTY. 1346: PATIENT DISCHARGED HOME WITH SPOUSE, NATASHA, TRANSPORT.
== END 2024-05-05 13:46 | disposition home or self-care (01) ==
LOC: SDCO 09:35
DX: C44.520 Squamous cell carcinoma of anal skin (principal)
CPT/HCPCS: J0665; J0690; J2704; J3010; J7120